=== PATIENT | female | born 1985 | race Two or more races ===

== ENCOUNTER 2018-05-14 06:50 | Inpatient (IN) ==
[2018-05-14] MEDS ORDERED: D5LR 1L W PITOCIN 10 UNITS/L 10 UNITS/1,000 ML BAG IV PRN (06:56)
[2018-05-14] MEDS ORDERED: REGLAN INJ 10 MG VIAL IVP PRN (06:56)
[2018-05-14] MEDS ORDERED: PITOCIN IVP ONE (06:56)
[2018-05-14] MEDS: LR 1000 ML IV 1,000 ML IV SCH ×3 (07:25→23:00)
[2018-05-14 07:36] LABS: BASOPHILS % (AUTO) 0.4 % (0.2-1.0); EOSINOPHILS % (AUTO) 0.5 % (0.9-2.9); HEMATOCRIT 32.6 % (36.0-47.0); HEMOGLOBIN 11.1 g/dL (12.0-16.0); LYMPHOCYTES # (AUTO) 2.3 X10^3/uL (1.3-2.9); LYMPHOCYTES % (AUTO) 34.8 % (21.0-51.0); MEAN CORPUSCULAR HEMOGLOBIN 25.8 pg (27.0-34.0); MEAN CORPUSCULAR HGB CONC 34.2 g/dL (33.0-35.0); MEAN CORPUSCULAR VOLUME 75.5 fL (80.0-100.0); MEAN PLATELET VOLUME 9.1 fL (7.4-11.0); MONOCYTES # (AUTO) 0.5 x10^3/uL (0.3-0.8); NEUTROPHILS # (AUTO) 3.9 x10^3/uL (2.2-4.8); NEUTROPHILS % (AUTO) 57.3 % (42.0-75.0); PLATELET COUNT 240 X10^3/uL (150.0-450.0); RED BLOOD COUNT 4.32 X10^6/uL (3.5-5.4); RED CELL DISTRIBUTION WIDTH 16.4 % (11.6-16.5); WHITE BLOOD COUNT 6.7 X10^3/uL (3.6-10.0)
[2018-05-14 07:44] LABS: BLOOD UREA NITROGEN 15 mg/dL (7-18); CALCIUM 8.4 mg/dL (8.5-10.1); CARBON DIOXIDE 20.8 mmol/L (21-32); CHLORIDE 104 mmol/L (98-107); CREATININE 0.54 mg/dL (0.55-1.02); SODIUM 137 mmol/L (136-145); eGFR NON BLACK RACES > 60 (>60)
[2018-05-14] MEDS ORDERED: PITOCIN ONE (07:44)
[2018-05-14] MEDS ORDERED: D5LR 1L W PITOCIN 10 UNITS/L 10 UNITS/1,000 ML BAG IV ONE (07:44)
[2018-05-14 07:56] LABS: PLATELET MORPHOLOGY COMMENT NORMAL (NORMAL); STOMATOCYTES RARE
[2018-05-14 07:57] LABS: HYPOCHROMASIA SLIGHT
[2018-05-14 08:10] LABS: BILIRUBIN,URINE NEGATIVE (NEGATIVE); BLOOD/HEMOGLOBIN,URINE NEGATIVE (NEGATIVE); GLUCOSE, URINE NEGATIVE (NEGATIVE); KETONES,URINE NEGATIVE (NEGATIVE); LEUKOCYTE ESTERASE ,URINE NEGATIVE (NEGATIVE); NITRITES,URINE NEGATIVE (NEGATIVE); PROTEIN,URINE 1+ (NEGATIVE); UROBILINOGEN,URINE NORMAL (NORMAL)
[2018-05-14 08:18] LABS: APPEARANCE,URINE CLEAR (CLEAR); COLOR,URINE YELLOW (YELLOW)
[2018-05-14 08:19] LABS: BACTERIA,URINE NEGATIVE /HPF (NEGATIVE); RBC,URINE NONE SEEN /HPF (NONE SEEN); SQUAMOUS EPITHELIAL CELL,UR RARE /HPF (NEGATIVE)
[2018-05-14 08:20] LABS: AMORPHOUS SEDIMENT,UR TRACE /HPF (NEGATIVE); MUCUS,URINE RARE /HPF (NEGATIVE)
[2018-05-14] MEDS: NUBAIN INJ 200 MG VIAL MULTIDOSE IVP PRN ×2 (09:03→11:25)
[2018-05-14] MEDS ORDERED: NUBAIN INJ 10 ONE ×2 (09:33→11:28)
[2018-05-14] MEDS ORDERED: XYLOCAINE 1 % (PLAIN) ONE (13:49)
[2018-05-14] MEDS ORDERED: AMBIEN PO PRN (13:56)
[2018-05-14] MEDS ORDERED: ADACEL or BOOSTRIX TDaP VACCINE IM ONE (13:56)
[2018-05-14] MEDS ORDERED: MILK OF MAGNESIA PO PRN (13:56)
[2018-05-14] MEDS ORDERED: PHENERGAN INJ 25 MG IV PRN (13:56)
[2018-05-14] MEDS ORDERED: DERMOPLAST SPRAY TOP PRN (13:56)
[2018-05-14] MEDS ORDERED: D5 1/2 NS 1L W PITOCIN 20 UNITS/L 20 UNITS/1,000 ML BAG IV ONE (14:36)
[2018-05-14] MEDS: D5 1/2 NS 1000 ML 1,000 ML with PITOCIN 20 UNITS IV SCH ×2 (14:39)
[2018-05-14] MEDS: MOTRIN TAB 800 MG PO PRN (15:19)
[2018-05-14] MEDS: ZANTAC PO SCH (21:04)
[2018-05-15 06:07] LABS: HEMATOCRIT 30.6 % (36.0-47.0); HEMOGLOBIN 10.5 g/dL (12.0-16.0)
[2018-05-15] MEDS: D5 1/2 NS 1000 ML 1,000 ML with PITOCIN 20 UNITS IV SCH ×6 (06:15→23:31)
[2018-05-15] MEDS: ZANTAC PO SCH ×2 (08:26→21:09)
[2018-05-15] MEDS: PRENATAL PLUS PO SCH (08:27)
[2018-05-15] MEDS: MOTRIN TAB 800 MG PO PRN (08:27)
[2018-05-15] MEDS: LR 1000 ML IV 1,000 ML IV SCH ×4 (13:56→23:32)
[2018-05-16] MEDS: MOTRIN TAB 800 MG PO PRN (00:49)
[2018-05-16] MEDS: D5 1/2 NS 1000 ML 1,000 ML with PITOCIN 20 UNITS IV SCH ×2 (05:03)
[2018-05-16] MEDS: LR 1000 ML IV 1,000 ML IV SCH (08:27)
[2018-05-16] MEDS: PRENATAL PLUS PO SCH (08:28)
[2018-05-16] MEDS: ZANTAC PO SCH (08:34)
[2018-05-16 12:34] VITALS: BP 130/60
== END 2018-05-16 13:45 | disposition home or self-care (01) | DRG 775 ==
LOC: LD 06:50 → MED/SURG 14:53
PROVIDERS: ADMIT Obstetrics & Gynecology Obstetrics; ATTEND Obstetrics & Gynecology Obstetrics
DX: O09.33 Supervision of pregnancy with insufficient antenatal care, third trimester; Z37.0 Single live birth; Z3A.40 40 weeks gestation of pregnancy; R09.89 Other specified symptoms and signs involving the circulatory and respiratory systems; O70.0 First degree perineal laceration during delivery
CPT/HCPCS: 36415; 59409; 80048; 81001; 85014; 85018; 85025; 86592; 86850; 86900; 86901; A4222; S0197; J2300; J2590; J7120; S5010